=== PATIENT | female | born 1990 | race Caucasian/White ===

== ENCOUNTER 2016-09-19 19:42 | Emergency (ER) | payer OTHER ==
[~2016-09-19] VITALS: Ht 160 cm; Wt 68.2 kg
[2016-09-19 22:19] VITALS: BP 118/87
== END 2016-09-19 22:20 | disposition home or self-care (01) ==
LOC: EMS 19:45
DX: J40 Bronchitis, not specified as acute or chronic (principal); J06.9 Acute upper respiratory infection, unspecified
CPT/HCPCS: 99283